=== PATIENT | female | born 1990 | race Caucasian/White ===

== ENCOUNTER 2017-04-15 20:51 | Emergency (ER) | payer MEDICAID ==
[~2017-04-15] VITALS: Ht 157.5 cm; Wt 75.0 kg
[2017-04-15 20:59] VITALS: Ht 157.5 cm; Wt 75.0 kg
[2017-04-15 21:17] VITALS: BP 108/78; PULSE 79; TEMP 98
[2017-04-15] MEDS ORDERED: IBUP-1542 PO (21:38)
[2017-04-15] MEDS ORDERED: AMO500 PO (21:38)
--- NOTE | 2017-04-15 21:45 | ERD ---
ER Documentation Chief Complaint Date/Time DATE: 04/15/17 TIME: 21:43 Chief Complaint pt reports bilateral ear pain for 2 days HPI This is a 26-year-old female presents to the ER with bilateral ear pain that started yesterday. Patient has had a cough over the last week. She also complains of a stuffy nose. Patient denies any discharge from her ear. She denies any fevers or chills. Her baby is sick with similar symptoms that started today. She denies any chest pain or shortness of breath. ROS 12 point review of systems was done, all negative except per HPI. Medications Home Meds Active Scripts Ibuprofen* (Motrin*) 600 Mg Tab, 600 MG PO Q6, #30 TAB Prov:RIC ZAZUETA C 04/15/17 Amoxicillin* (Amoxicillin*) 500 Mg Cap, 500 MG PO BID for 10 Days, CAP Prov:CARLITA,RIC C 04/15/17 Allergies Allergies: Coded Allergies: No Known Allergy (Unverified , 02/01/16) PMhx/Soc Medical and Surgical Hx: pt denies Medical Hx, pt denies Surgical Hx History of Surgery: No Anesthesia Reaction: No Hx Neurological Disorder: No Hx Respiratory Disorders: No Hx Cardiac Disorders: No Hx Psychiatric Problems: No Hx Miscellaneous Medical Probl: No Hx Alcohol Use: No Hx Substance Use: No Hx Tobacco Use: No Smoking Status: Never smoker Physical Exam Vitals Vital Signs Date Time Temp Pulse Resp B/P Pulse Ox O2 Delivery O2 Flow Rate FiO2 04/15/17 21:17 98.0 79 108/78 99 Room Air Physical Exam GENERAL: The patient is well-developed, well-nourished, in no acute distress. HEENT: Atraumatic. Pupils equal, round and reactive to light. Extraocular muscles are grossly intact. Conjunctivae pink, no discharge. Bilateral erythematous TMs, no TM bulging. No mastoid tenderness. Tonsilar erythema with no exudates or uvular deviation. Clear rhinorrhea. RESPIRATORY: Clear to auscultation bilaterally. There are no rales, wheezes or rhonchi. HEART: Regular rate and rhythm. No murmurs, clicks, rubs or gallops. NEUROLOGIC: Alert and oriented. SKIN: There is no rash. The skin is warm and dry. Procedures/MDM Differential diagnosis includes but is not limited to; Viral URI, allergic rhinitis, bronchitis, pertussis,pneumonia. Cough is likely viral in etiology. Clinical suspicion for pneumonia is low as patient appears well, is not hypoxic or in any respiratory distress. Additionally, patient does have otitis media. Plan was discussed with patient they understand and agree. Patient needs to follow up with PCP in 1-2 days or return to ER sooner if symptoms worsen. Departure Diagnosis: Primary Impression: Otitis media Condition: Stable Patient Instructions: Otitis Media, Abx Tx [Child] Additional Instructions: Call your primary care doctor TOMORROW for an appointment during the next 1-2 days.See the doctor sooner or return here if your condition worsens before your appointment time. RIC ZAZUETA Apr 15, 2017 21:45
[2017-04-15] MEDS ORDERED: D-ME473S18 PO (21:46)
== END 2017-04-15 22:00 | disposition home or self-care (01) ==
LOC: FTE 20:51
DX: H66.93 Otitis media, unspecified, bilateral (principal)
CPT/HCPCS: 99284

== ENCOUNTER 2017-07-02 19:08 | Emergency (ER) | payer MEDICAID ==
[~2017-07-02] VITALS: Ht 165.1 cm; Wt 77.5 kg
[~2017-07-02 19:08] MED LIST: AMOX500C2 PO; D-ME473S18 PO; IBUP-1542 PO
[2017-07-02 19:12] VITALS: Ht 165.1 cm; Wt 77.5 kg
[2017-07-02] MEDS ORDERED: METOCLOPRAMIDE 10 MG INJ IV STA (19:33)
[2017-07-02] MEDS ORDERED: KETOROLAC 30 MG INJ IV STA (19:33)
[2017-07-02] MEDS ORDERED: DIPHENHYDRAMINE 50 MG INJ IV STA (19:33)
[2017-07-02] MEDS ORDERED: SOD CHLORIDE 0.9% 1,000 ML IV STA (19:33)
[2017-07-02 20:04] LABS: BASOPHIL # 0.1 10^3/ul (0.0-0.1); BASOPHILS % 0.5 % (0.0-2.0); EOSINOPHILS # 0.2 10^3/ul (0.0-0.5); EOSINOPHILS % 1.3 % (0.0-7.0); HEMATOCRIT 41.5 % (37.0-47.0); HEMOGLOBIN 13.8 g/dl (12.0-16.0); LYMPHOCYTES # 4.1 10^3/ul (0.8-2.9); LYMPHOCYTES % 27.7 % (15.0-51.0); MEAN CORPUSCULAR HEMOGLOBIN 29.7 pg (29.0-33.0); MEAN CORPUSCULAR HGB CONC 33.3 g/dl (32.0-37.0); MEAN CORPUSCULAR VOLUME 89.2 fl (82.0-101.0); MEAN PLATELET VOLUME 10.5 fl (7.4-10.4); MONOCYTE # 0.8 10^3/ul (0.3-0.9); MONOCYTES % 5.7 % (0.0-11.0); NEUTROPHIL # 9.5 10^3/ul (1.6-7.5); NEUTROPHILS % 64.3 % (39.0-77.0); PLATELET COUNT 296 10^3/UL (140-415); RED BLOOD COUNT 4.65 10^6/ul (4.20-5.40); RED CELL DISTRIBUTION WIDTH 12.3 % (11.5-14.5); WHITE BLOOD COUNT 14.7 10^3/ul (4.8-10.8)
[2017-07-02 20:12] LABS: INR 0.96; PROTIME 12.8 Sec (12.2-14.2)
[2017-07-02 20:14] LABS: CALCIUM 9.6 mg/dl (8.4-10.2); CREATININE 0.71 mg/dl (0.44-1.00); POTASSIUM 3.7 mmol/L (3.5-5.1)
--- NOTE | 2017-07-02 20:37 | RADRPT ---
PROCEDURE: CT Brain without contrast. CLINICAL INDICATION: Dizziness TECHNIQUE: A CT of the brain was performed on a GE [employer] 64-slice CT scanner utilizing axial imaging from the skull base through the vertex without IV contrast. Multiplanar reformatted images were made. Images were reviewed on a PACS workstation. The CTDIvol is 44.97 mGy and the DLP is 630 .20 mGycm. One of the following 3 does reduction techniques were used during this CT examination: 1) Automated exposure control 2) Adjustment of the mA +/- kV according to patient size or 3) Use of iterative reconstruction technique COMPARISON: None available FINDINGS: There is no intracranial hemorrhage, mass effect, or midline shift. No extra-axial fluid collection is seen. The ventricles and sulci are normal in size and configuration. The density of the brain is normal, and the sutherland white matter differentiation appears well-preserved. The visualized scalp and calvarium are normal. The bilateral orbits are normal. The bilateral parana saud sinuses, mastoid air cells and middle ear cavities are clear. IMPRESSION: 1. No evidence of acute intracranial hemorrhage, infarcts, or acute intracranial pathology. 2. Normal noncontrast head CT. RPTAT: HD .Marysol Ward MD, Date Time Electronically viewed and signed by .Marysol Ward MD, MD on 07/02/2017 20:37 .C/
[2017-07-02 20:39] LABS: PARTIAL THROMBOPLASTIN TIME 26.1 Sec (25.0-35.0)
[2017-07-02 21:23] LABS: ADD UMIC NO; UR ASCORBIC ACID 20 mg/dL (NEGATIVE); UR BILIRUBIN (Dip) NEGATIVE (NEGATIVE); UR BLOOD (Dip) NEGATIVE (NEGATIVE); UR CLARITY SLIGHTLY CLOUDY (CLEAR); UR COLOR YELLOW (YELLOW); UR GLUCOSE (Dip) NEGATIVE (NEGATIVE); UR KETONES (Dip) NEGATIVE (NEGATIVE); UR LEUKOCYTE ESTERASE (Dip) NEGATIVE Leu/ul (NEGATIVE); UR MUCUS FEW /HPF (NONE SEEN); UR NITRITE (Dip) NEGATIVE (NEGATIVE); UR RBC 0 /HPF (0-5); UR TOTAL PROTEIN (Dip) NEGATIVE (NEGATIVE); UR UROBILINOGEN (Dip) NEGATIVE (NEGATIVE)
[2017-07-02] MEDS ORDERED: MECL12.574 PO (21:50)
[2017-07-02] MEDS ORDERED: NAPR-260 PO (21:50)
--- NOTE | 2017-07-02 22:16 | ERD ---
ER Documentation Chief Complaint Date/Time DATE: 07/02/17 TIME: 22:11 Chief Complaint DIZZINESS X1 WEEK, NAUSEA, HEAD PAIN HPI Patient is a 26-year-old female presenting to the emergency department with complaints of intermittent dizziness for 1 week. Associated symptoms include headache and nausea. She states the headache onset gradually. She has noticed a headache daily. Symptoms have become constant. She took ibuprofen at home with no relief of symptoms. She is also experienced some nausea. Last menstrual cycle was 06-24-2017 and she denies chance of at this time. Symptoms are moderate in severity. As have history of headaches in the past and she denies this being the worst headache of her life she also denies thunderclap headache. ROS All systems reviewed and are negative except as per history of present illness. Medications Home Meds Active Scripts Meclizine Hcl* (Antivert*) 12.5 Mg Tab, 12.5 MG PO Q6H Y for DIZZINESS, #20 TAB Prov:KOBI CABAN PA-C 07/02/17 Naproxen* (Naprosyn*) 500 Mg Tablet, 500 MG PO BID Y for PAIN AND/OR INFLAMMATION, #30 TAB Prov:KOBI CABAN PA-C 07/02/17 Dextromethorphan Hb-Promethazine Hcl (Promethazine DM Syrup) 473 Ml Syrup, 10 ML PO Q6H Y for COUGH, #4 OZ Prov:RIC ZAZUETA 04/15/17 Ibuprofen* (Motrin*) 600 Mg Tab, 600 MG PO Q6, #30 TAB Prov:RIC ZAZUETA 04/15/17 Amoxicillin* (Amoxicillin*) 500 Mg Cap, 500 MG PO BID for 10 Days, CAP Prov:RIC ZAZUETA 04/15/17 Allergies Allergies: Coded Allergies: No Known Allergy (Unverified , 02/01/16) PMhx/Soc History of Surgery: No Anesthesia Reaction: No Hx Neurological Disorder: No Hx Respiratory Disorders: No Hx Cardiac Disorders: No Hx Psychiatric Problems: No Hx Miscellaneous Medical Probl: No Hx Alcohol Use: No Hx Substance Use: No Hx Tobacco Use: No Smoking Status: Never smoker Physical Exam Vitals Vital Signs Date Time Temp Pulse Resp B/P Pulse Ox O2 Delivery O2 Flow Rate FiO2 07/02/17 19:12 98.1 105 20 119/60 99 Physical Exam Const: Toxic, well-appearing female in no acute distress. Head: Atraumatic Eyes: Normal Conjunctiva ENT: Normal External Ears, Nose and Mouth. Neck: Full range of motion..~ No meningismus. Resp: Clear to auscultation bilaterally Cardio: Regular rate and rhythm, no murmurs Abd: Soft, non tender, non distended. Normal bowel sounds Skin: No petechiae or rashes Back: No midline or flank tenderness Ext: No cyanosis, or edema Neur: Awake and alert and extraocular movements intact bilaterally. Cranial nerves intact. Strength and sensation intact in bilateral upper and lower extremities. Psych: Normal Mood and Affect Result Diagram: 07/02/17194607/02/171946 Results 24 hrs Laboratory Tests Test 07/02/17 19:45 07/02/17 19:47 Urine Color YELLOW Urine Clarity SLIGHTLY CLOUDY Urine pH 5.0 Urine Specific [place] 1.030 Urine Ketones NEGATIVEmg/dL Urine Nitrite NEGATIVEmg/dL Urine Bilirubin NEGATIVEmg/dL Urine Urobilinogen NEGATIVEmg/dL Urine Leukocyte Esterase NEGATIVELeu/ul Urine Microscopic RBC 0/HPF Urine Microscopic WBC 0/HPF Urine Mucus FEW/HPF Urine Hemoglobin NEGATIVEmg/dL Urine Glucose NEGATIVEmg/dL Urine Total Protein NEGATIVEmg/dl White Blood Count 14.710^3/ul Red Blood Count 4.6510^6/ul Hemoglobin 13.8g/dl Hematocrit 41.5% Mean Corpuscular Volume 89.2fl Mean Corpuscular Hemoglobin 29.7pg Mean Corpuscular Hemoglobin Concent 33.3g/dl Red Cell Distribution Width 12.3% Platelet Count 00411^3/UL Mean Platelet Volume 10.5fl Neutrophils % 64.3% Lymphocytes % 27.7% Monocytes % 5.7% Eosinophils % 1.3% Basophils % 0.5% Nucleated Red Blood Cells % 0.0/100WBC Neutrophils # 9.510^3/ul Lymphocytes # 4.110^3/ul Monocytes # 0.810^3/ul Eosinophils # 0.210^3/ul Basophils # 0.110^3/ul Nucleated Red Blood Cells # 0.010^3/ul Prothrombin Time 12.8Sec Prothrombin Time Ratio 1.0 INR International Normalized Ratio 0.96 Activated Partial Thromboplast Time 26.1Sec Sodium Level 139mmol/L Potassium Level 3.7mmol/L Chloride Level 104mmol/L Carbon Dioxide Level 25mmol/L Anion Gap 14 Blood Urea Nitrogen 14mg/dl Creatinine 0.71mg/dl Glucose Level 100mg/dl Calcium Level 9.6mg/dl Current Medications Medications (Trade) Dose Ordered Sig/Shraddha Route PRN Reason Start Time Stop Time Status Last Admin Dose Admin Sodium Chloride (NS) 1,000 ml @ 1,000 mls/hr Q1H STAT IV 07/02/17 19:33 07/02/17 20:32 DC 07/02/17 19:46 Metoclopramide HCl (Reglan) 10 mg ONCE STAT IV 07/02/17 19:33 07/02/17 19:36 DC 07/02/17 19:43 Ketorolac Tromethamine (Toradol) 30 mg ONCE STAT IV 07/02/17 19:33 07/02/17 19:36 DC 07/02/17 19:44 Diphenhydramine HCl (Benadryl) 50 mg ONCE STAT IV 07/02/17 19:33 07/02/17 19:36 DC 07/02/17 19:43 Procedures/MDM This patient is a 26-year-old female presenting to the emergency department with complaints of vertigo-like symptoms and headache. Physical examination is unremarkable. The patient is treated in the department with IV fluids, IV Reglan, IV Toradol, and IV Benadryl. She is feeling significantly improved on reevaluation. CBC was notable for a white blood cell count of 15, which is likely reactive in nature. No signs of anemia. Chemistry panel was negative for acute findings. Urinalysis was not concerning for signs of infection or proteinuria. CT head without contrast was obtained and showed no evidence of acute intracranial hemorrhage, infarct, or acute intracranial pathology. This is interpreted by the radiologist. I did discuss this patient with supervising physician, Dr. iMna Garcia agreed with the assessment, plan to discharge, and overall ED course. I have low suspicion for intracranial hemorrhage, CVA, TIA, subdural hematoma, subarachnoid hemorrhage, meningitis, or other emergent conditions. The patient was hemodynamically stable for discharge after treatment in the department. She was instructed to return immediately for any new or worsening symptoms. Close follow-up with primary care physician was advised. The patient was provided with prescriptions for pain medication at home. Questions and concerns were addressed prior to discharge. PROCEDURE: CT Brain without contrast. CLINICAL INDICATION: Dizziness TECHNIQUE: A CT of the brain was performed on a GE [employer] 64-slice CT scanner utilizing axial imaging from the skull base through the vertex without IV contrast. Multiplanar reformatted images were made. Images were reviewed on a PACS workstation. The CTDIvol is 44.97 mGy and the DLP is 630.20 mGycm. One of the following 3 does reduction techniques were used during this CT examination: 1) Automated exposure control 2) Adjustment of the mA +/- kV according to patient size or 3) Use of iterative reconstruction technique COMPARISON: None available FINDINGS: There is no intracranial hemorrhage, mass effect, or midline shift. No extra- axial fluid collection is seen. The ventricles and sulci are normal in size and configuration. The density of the brain is normal, and the sutherland white matter differentiation appears well-preserved. The visualized scalp and calvarium are normal. The bilateral orbits are normal. The bilateral paranasal sinuses, mastoid air cells and middle ear cavities are clear. IMPRESSION: 1. No evidence of acute intracranial hemorrhage, infarcts, or acute intracranial pathology. 2. Normal noncontrast head CT. RPTAT: [facility] .Marysol Ward MD, MD Date Time Electronically viewed and signed by .Marysol Ward MD, MD on 07/02/2017 20: 37 Departure Diagnosis: Primary Impression: Headache Headache type: unspecified Headache chronicity pattern: acute headache Intractability: not intractable Qualified Code: R51 - Acute nonintractable headache, unspecified headache type Additional Impression: Dizziness Condition: Fair Patient Instructions: Self-Care for Headaches, Dizziness, Unk Cause Referrals: [facility] Usted se hayden hecho un examen mdico de control que le indica que no est en keny condicin que requiera tratamiento urgente en el Departamento de Emergencia. Un estudio ms profundo y el tratamiento de rodrigues condicin pueden esperar sin ningn riesgo hasta que usted sea atendida/o en el consultorio de rodrigues mdico o keny cl cecille. Es responsabilidad suya arreglar keny lara para el seguimiento del osvaldo. MANEJO DE CONDICIONES NO URGENTES EN EL FUTURO 1) Si usted tiene un mdico de atencin primaria: Usted debera llamar a rodrigues mdico de atencin primaria antes de venir al departamento de emergencia. Despus de las horas de consultorio, rodrigues doctor o rodrigues asociado/a est disponible por telfono. El mdico o enfermero de latrell en el servicio telefnico puede asesorarle por kate medio para atender el problema, o osvaldo contrario se puede programar keny lara. 2) Si usted no tiene un mdico de atencin primaria: Llame al mdico o clnica de referencia que aparece abajo lei las horas de consultorio para hacer keny lara para que le vean. CLINICAS: [facility] [phone] [facility] [facility] [phone] [address] [facility] [facility] [phone] [facility]. [facility] [phone] [facility]. [place] [id number] [phone] [facility]. [phone] [address] Additional Instructions: No mas mejor en 2-3 farah, regresar. Mas peor en 24 horas, regresear rapidamente. Ir a doctor primario in 5-7 farah. Usar instrucciones cuando anupama medicamento. KOBI CABAN PA-C Jul 02, 2017 22:16
== END 2017-07-02 21:52 | disposition home or self-care (01) ==
LOC: FTE 19:08
DX: R51 Headache (principal)
CPT/HCPCS: 70450; 80048; 81001; 85025; 85610; 85730; 96374; 96375; J1200; J1885; J2765; J7030; Z7502; 81003

== ENCOUNTER 2018-07-08 18:13 | Emergency (ER) | END 2018-07-08 21:04 | disposition home or self-care (01) ==